=== PATIENT | male | born 1960 | race Caucasian/White ===

== ENCOUNTER 2025-07-29 13:40 | Inpatient (IN) | payer MEDICARE, MEDICAID ==
[~2025-07-29] VITALS: Ht 180.3 cm; Wt 77.6 kg
[2025-07-29 16:41] LABS: GLUCOMETER DEV NAME(LOC) POC.BV; POC SARS-COV2 AG, FIA NEGATIVE (NEGATIVE)
[2025-07-29 16:55] VITALS: BP 107/58; PULSE 55; RESP 16; TEMP 97.7; O2SAT 100
[2025-07-29] MEDS ORDERED: LISI-894 PO (17:01)
[2025-07-29] MEDS ORDERED: TIZA-211 PO (17:01)
[2025-07-29] MEDS ORDERED: METH-659 PO (17:01)
[2025-07-29] MEDS ORDERED: PREG75 PO (17:01)
[2025-07-29] MEDS ORDERED: PNEUMOCOCCAL VACCINE POLYVALENT 0.5 ML SYRINGE [PPSV23] IM. ONE (18:00)
[2025-07-29] MEDS ORDERED: ONDANSETRON 4 MG TABLET PO PRN (20:15)
[2025-07-29] MEDS ORDERED: MAGNESIUM HYDROXIDE SUSPENSION 30 ML UDCUP PO PRN (20:15)
[2025-07-29] MEDS ORDERED: ALBUTEROL SULFATE HFA 90 MCG/PUFF 8 GM INHALER IH PRN (20:15)
[2025-07-29] MEDS ORDERED: DOCUSATE SODIUM 100 MG CAPSULE PO PRN (20:15)
[2025-07-29] MEDS ORDERED: GuaiFENesin/D-METHORPHAN [SUGAR-FREE] 200-20MG/10 ML SYRUP UDCUP PO PRN (20:15)
[2025-07-29] MEDS ORDERED: NICOTINE 14 MG/24 HOUR PATCH TD PRN (20:15)
[2025-07-29] MEDS ORDERED: MAG HYDROX/ALUMINUM HYD/SIMETH ES 30 ML SUSPENSION UDCUP PO PRN (20:15)
[2025-07-29] MEDS ORDERED: LOPERAMIDE HCL 2 MG CAPSULE PO PRN (20:15)
[2025-07-29] MEDS ORDERED: PETROLATUM,WHITE 28 GM JELLY TP PRN (20:15)
[2025-07-29] MEDS ORDERED: ACETAMINOPHEN 325 MG TABLET PO PRN (20:15)
[2025-07-29] MEDS ORDERED: IBUPROFEN 400 MG TABLET PO PRN (20:15)
[2025-07-29 20:45] VITALS: BP 150/82; PULSE 72; RESP 16; TEMP 97.2; O2SAT 100
[2025-07-29] MEDS: OxyCODONE HCL 5 MG IR TABLET PO PRN (20:49)
[2025-07-29 21:45] VITALS: BP 125/70; PULSE 65; RESP 16
[2025-07-29] MEDS: NICOTINE POLACRILEX 2 MG LOZENGE PO PRN (21:47)
[2025-07-29] MEDS: ZOLPIDEM TARTRATE 10 MG TABLET PO PRN (21:47)
[2025-07-30] VITALS (7 sets, daily range): BP systolic 96–135; BP diastolic 68–92; PULSE 65–96; RESP 18; TEMP 95.9–97.9; O2SAT 98–100
[2025-07-30 09:22] LABS: CHOL/HDL RATIO 4.0 (4.2-7.3); LDL CHOL (CALC.) 119 mg/dL (0-130)
[2025-07-30 09:43] LABS: ALCOHOL, BLOOD (SERUM) < 3 mg/dL (0-10)
[2025-07-30] MEDS: SERTRALINE HCL 50 MG TABLET PO SCH (09:45)
[2025-07-30] MEDS ORDERED: PETROLATUM,WHITE 28 GM JELLY TP PRN (10:30)
[2025-07-30] MEDS ORDERED: LOPERAMIDE HCL 2 MG CAPSULE PO PRN (10:30)
[2025-07-30] MEDS ORDERED: MAGNESIUM HYDROXIDE SUSPENSION 30 ML UDCUP PO PRN (10:30)
[2025-07-30] MEDS ORDERED: MAG HYDROX/ALUMINUM HYD/SIMETH ES 30 ML SUSPENSION UDCUP PO PRN (10:30)
[2025-07-30] MEDS ORDERED: BACITRACIN 28 GM OINTMENT TP PRN (10:30)
[2025-07-30] MEDS ORDERED: ONDANSETRON 4 MG TABLET PO PRN (10:30)
[2025-07-30] MEDS ORDERED: ALBUTEROL SULFATE HFA 90 MCG/PUFF 8 GM INHALER IH PRN (10:30)
[2025-07-30] MEDS ORDERED: BENZOCAINE/MENTHOL [CEPACOL] LOZENGE PO PRN (10:30)
[2025-07-30] MEDS ORDERED: OMEPRAZOLE 20 MG CAPSULE PO PRN (10:30)
[2025-07-30] MEDS ORDERED: DOCUSATE SODIUM 100 MG CAPSULE PO PRN (10:30)
[2025-07-30] MEDS: DICLOFENAC SODIUM 50 MG DR TABLET PO PRN (14:16)
[2025-07-31 06:48] VITALS: BP 135/77; PULSE 62; RESP 18; TEMP 98.1; O2SAT 99
[2025-07-31 10:40] VITALS: BP 119/79; PULSE 57; RESP 16; TEMP 98.7; O2SAT 97
[2025-07-31 17:48] VITALS: BP 120/73; PULSE 61; RESP 17; O2SAT 98
[2025-07-31 18:48] VITALS: RESP 17
[2025-07-31 19:52] VITALS: RESP 17
[2025-07-31 20:44] VITALS: BP 127/84; PULSE 65; RESP 18; TEMP 98.2; O2SAT 98
[2025-08-01 05:49] VITALS: BP 139/72; PULSE 70; RESP 17; TEMP 98.4; O2SAT 99
[2025-08-01 06:49] VITALS: RESP 17
[2025-08-01 08:44] VITALS: BP 134/82; PULSE 61; RESP 17; TEMP 98.2; O2SAT 100
[2025-08-01 17:18] VITALS: BP 148/83; PULSE 68; RESP 18; O2SAT 96
[2025-08-01 18:18] VITALS: RESP 18
[2025-08-01 20:18] VITALS: BP 137/87; PULSE 82; RESP 18; TEMP 97.8; O2SAT 100
[2025-08-02 02:36] VITALS: BP 138/89; PULSE 58; RESP 18; TEMP 98.4; O2SAT 98
[2025-08-02 08:30] VITALS: BP 116/64; PULSE 61; RESP 18; TEMP 98.4; O2SAT 98
[2025-08-02 16:28] VITALS: RESP 18
[2025-08-02 17:28] VITALS: RESP 17
[2025-08-02 20:11] VITALS: BP 122/87; PULSE 60; RESP 18; TEMP 98; O2SAT 98
[2025-08-02] MEDS: IBUPROFEN 600 MG TABLET PO PRN (20:16)
[2025-08-03 04:39] VITALS: BP 124/86; PULSE 68; RESP 18; TEMP 97.8; O2SAT 98
[2025-08-03] MEDS: OxyCODONE HCL 5 MG IR TABLET PO PRN (15:54)
[2025-08-03 20:37] VITALS: BP 136/83; PULSE 76; RESP 18; TEMP 97.7; O2SAT 99
[2025-08-03 23:23] VITALS: BP 107/70; PULSE 59; RESP 18; TEMP 97.8; O2SAT 99
[2025-08-04] VITALS (8 sets, daily range): BP systolic 105–154; BP diastolic 72–83; PULSE 62–80; RESP 17–18; TEMP 97.7–97.8; O2SAT 98–100
[2025-08-04 10:03] LABS: APPEARANCE,URINE CLEAR (CLEAR); GLUCOSE, URINE (UA) NEGATIVE (NEGATIVE); LEUKOCYTE ESTERASE ,URINE NEGATIVE (NEGATIVE); NITRATE,URINE NEGATIVE (NEGATIVE); OCCULT BLOOD,URINE TRACE (NEGATIVE); PH,URINE DRUG SCREEN 6.0 (5.0-8.0); SPECIFIC GRAVITIY, URINE 1.019 (1.003-1.030)
[2025-08-04 10:16] LABS: SQUAMOUS EPITHELIAL CELL,UR Rare /LPF (None Seen)
[2025-08-04 10:45] LABS: ALCOHOL, URINE DRUG SCREEN NEGATIVE (NEGATIVE); AMPHET/METH SCREEN,URINE NEGATIVE (NEGATIVE); BARBITURATE SCREEN, URINE NEGATIVE (NEGATIVE); CANNABINOID SCREEN,URINE NEGATIVE (NEGATIVE); COCAINE SCREEN,URINE NEGATIVE (NEGATIVE); METHADONE SCREEN, URINE NEGATIVE (NEGATIVE)
[2025-08-05 08:38] VITALS: BP 123/75; PULSE 63; RESP 16; TEMP 97.2; O2SAT 97
[2025-08-05 08:45] VITALS: RESP 16; O2SAT 97
[2025-08-05 09:45] VITALS: RESP 16; O2SAT 97
[2025-08-05 17:04] VITALS: BP 121/71; PULSE 86; RESP 17; O2SAT 97
[2025-08-05 18:04] VITALS: RESP 17; O2SAT 97
[2025-08-05 20:13] VITALS: BP 121/71; PULSE 88; RESP 18; TEMP 98; O2SAT 99
[2025-08-06 03:34] VITALS: BP 142/73; PULSE 58; RESP 18; TEMP 98.2; O2SAT 98
[2025-08-06 08:41] VITALS: BP 131/70; PULSE 70; RESP 18; TEMP 97.2; O2SAT 97
[2025-08-06 10:25] VITALS: BP 140/78; PULSE 61; RESP 18; TEMP 98.1; O2SAT 98
[2025-08-06 16:29] VITALS: BP 109/82; PULSE 63; RESP 18; TEMP 98.2; O2SAT 99
[2025-08-06 20:31] VITALS: BP 109/66; PULSE 81; RESP 17; TEMP 97.8; O2SAT 98
[2025-08-07] VITALS (9 sets, daily range): BP systolic 129–137; BP diastolic 74–83; PULSE 48–69; RESP 16–18; TEMP 97.9–98.6; O2SAT 98
[2025-08-08] VITALS (8 sets, daily range): BP systolic 110–140; BP diastolic 70–91; PULSE 54–67; RESP 8–18; TEMP 97.4–98.6; O2SAT 96–98
[2025-08-09 06:21] VITALS: BP 142/86; PULSE 58; RESP 18; TEMP 97.4; O2SAT 98
[2025-08-09 08:24] VITALS: BP 111/70; PULSE 62; RESP 18; TEMP 98.4; O2SAT 96
[2025-08-09 10:40] VITALS: BP 108/69; PULSE 55; RESP 16; TEMP 98.4; O2SAT 96
[2025-08-09] MEDS: ACETAMINOPHEN 325 MG TABLET PO PRN (10:40)
[2025-08-09] MEDS ORDERED: SERT-439 PO (11:43)
[2025-08-09] MEDS ORDERED: LISI-894 PO (11:43)
[2025-08-09] MEDS ORDERED: SERT-158 PO (13:34)
== END 2025-08-09 15:56 | disposition home or self-care (01) | DRG 885 ==
LOC: B3A 15:10 → B2S 07-30 16:03 → B2X 08-06 17:21 → B2S 08-07 21:19
PROVIDERS: ADMIT Psychiatry & Neurology Psychiatry; ATTEND Psychiatry & Neurology Psychiatry
PROC: GZHZZZZ Group Psychotherapy (ICD-10-PCS; principal; 2025-07-30)
PROC: GZ52ZZZ Individual Psychotherapy, Cognitive (ICD-10-PCS; 2025-08-03)
DX: F33.2 Major depressive disorder, recurrent severe without psychotic features (principal); R45.851 Suicidal ideations; I38 Endocarditis, valve unspecified; I10 Essential (primary) hypertension; J44.9 Chronic obstructive pulmonary disease, unspecified; K59.00 Constipation, unspecified; F41.9 Anxiety disorder, unspecified; R53.1 Weakness; G47.00 Insomnia, unspecified; G89.4 Chronic pain syndrome; I25.10 Atherosclerotic heart disease of native coronary artery without angina pectoris; M62.838 Other muscle spasm; Z20.822 Contact with and (suspected) exposure to COVID-19; Z79.899 Other long term (current) drug therapy; Z72.0 Tobacco use
CPT/HCPCS: 80061; 80307; 81001; 83036; G0480